=== PATIENT | male | born 1975 | race Caucasian/White ===

== ENCOUNTER 2017-01-12 08:21 | Emergency (ER) | payer SELFPAY ==
[~2017-01-12] VITALS: Ht 175.3 cm; Wt 80.0 kg
[~2017-01-12 08:21] MED LIST: Z.0.NO CURRENT MEDS
[2017-01-12 08:32] VITALS: BP 139/80; PULSE 82; RESP 18; O2SAT 98
[2017-01-12] MEDS ORDERED: TETANUS/DIPHTHERIA TOXOID ADULT 0.5 ML VIAL IM ONE (08:45)
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
--- NOTE | 2017-01-12 09:34 | PD ---
Physical Exam Date Seen by Provider: Jan 12, 2017 Time Seen by Provider: 09:33 Narrative I was asked by Dr. Centeno to repair laceration to the patient's left temporal scalp. Please see his documentation for full history and physical. Data Data Last Documented VS Vital Signs Date Time Temp Pulse Resp B/P Pulse Ox O2 Delivery O2 Flow Rate FiO2 01/12/17 08:35 82 18 01/12/17 08:32 139/[address] Brain W/O Iv Contrast(Rout) (01/12/17 08:39) Ct Cerv Spine W/O Contrast (01/12/17 08:39) Tetanus/Diphtheria Tox Adult (Tetanus/Di (01/12/17 08:45) MDM Supervised Visit with [facility]: No Procedures Procedure Narrative LACERATION LOCATION: Left temporal scalp LENGTH: 1.5 cm NUMBER OF STITCHES/ROMINA: 2 romina REPAIR: The area of the laceration was prepped with Betadine and sterilely draped. The wound was copiously irrigated and explored without evidence of foreign body, tendon injury or neurovascular injury. The wound was closed using romina. This was a single layer repair. A sterile dressing was applied. The patient was advised to keep the dressing clean and dry. Patient tolerated the procedure well. Scripts No Active Prescriptions or Reported Meds Sana Cooper Jan 12, 2017 09:34
== END 2017-01-12 10:30 | disposition home or self-care (01) ==
LOC: NEPC 08:21
DX: S09.8XXA Other specified injuries of head, initial encounter (principal); S01.01XA Laceration without foreign body of scalp, initial encounter; Z23 Encounter for immunization; W22.8XXA Striking against or struck by other objects, initial encounter
CPT/HCPCS: 12001; 70450; 72125; 90471; 90714